=== PATIENT | male | born 2000 | race Caucasian/White ===

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

== ENCOUNTER 2020-01-10 20:37 | Emergency (ER) | payer MEDICAID ==
[~2020-01-10] VITALS: Ht 182.9 cm; Wt 75.0 kg
[~2020-01-10 20:37] MED LIST: DIPH25CA61 PO; FAMO-79 PO; HYDR-826 PO; LITH600C PO; MELA10TA PO; QUET200T PO
[2020-01-10] MEDS ORDERED: KETOROLAC 30 MG/1 ML IVPush ONE (21:30)
[2020-01-10] MEDS ORDERED: KETOROLAC 30 MG/1 ML ONE (21:43)
[2020-01-10 21:58] VITALS: BP 113/68
== END 2020-01-10 22:15 | disposition home or self-care (01) ==
LOC: ED 21:45
DX: R07.89 Other chest pain (principal)
CPT/HCPCS: 71045; 93005; 96374; 99283; J1885

== ENCOUNTER 2020-04-04 18:37 | Emergency (ER) | payer MEDICAID ==
[~2020-04-04] VITALS: Ht 180.3 cm; Wt 76.2 kg
--- NOTE | 2020-04-04 19:19 | NUR ---
PT PRESENTING TO ER FOR SHARP/STABBING RIGHT ABD PAIN, NO N/V/D, NO URINARY SYMPOTMS REPORTED. CONNECTED TO MONITORING, VSS. CALL LIGHT WITHIN REACH. UA COLLECTED AND SENT TO LAB. LABS COLLECTTED AND PT BEING TAKEN TO RAD NOW.
[2020-04-04 19:26] LABS: BASOPHILS # (AUTO) 0.03 x10^3/uL (0-0.3); BASOPHILS % (AUTO) 0 % (0-1); EOSINOPHILS # (AUTO) 0.09 x10^3/uL (0-0.8); EOSINOPHILS % (AUTO) 1 % (1-7); LYMPHOCYTES # (AUTO) 2.34 x10^3/uL (1-6.1); LYMPHOCYTES % (AUTO) 26 % (22-44); MD NO; MEAN CORPUSCULAR HEMOGLOBIN 28.9 pg (27.5-34.5); MEAN CORPUSCULAR HGB CONC 33.7 g/dL (33.2-36.2); MEAN CORPUSCULAR VOLUME 85.9 fL (81-97); MEAN PLATELET VOLUME 8.1 fL (7.4-10.4); MONOCYTES # (AUTO) 0.85 x10^3/uL (0-1.4); MONOCYTES % (AUTO) 10 % (2-9); NEUTROPHILS # (AUTO) 5.62 x10^3/uL (1.8-8.0); NEUTROPHILS % (AUTO) 63 % (42-75); PLATELET COUNT 248 x10^3/uL (130-400); RED BLOOD COUNT 5.51 x10^6/uL (4.38-5.82); RED CELL DISTRIBUTION WIDTH 12.5 % (9.4-14.8)
[2020-04-04 19:39] LABS: ALANINE AMINOTRANSFERASE 22 U/L (12-78); ALBUMIN 4.3 g/dL (3.4-5.0); ANION GAP 6 mmol/L (5-15); CALCIUM 8.8 mg/dL (8.5-10.1); CHLORIDE 104 mmol/L (98-107)
[2020-04-04 19:41] LABS: ALKALINE PHOSPHATASE 62 U/L (45-117); BILIRUBIN,TOTAL 0.5 mg/dL (0.2-1.0); CREATININE 1.04 mg/dL (0.7-1.3); TOTAL PROTEIN 7.5 g/dL (6.4-8.2)
--- NOTE | 2020-04-04 20:18 | NUR ---
ALL RESULTS BACK AT THIS TIME, CHART UP FOR RECHECK
[2020-04-04 20:19] VITALS: BP 108/73
[2020-04-04] MEDS ORDERED: ONDANSETRON ODT 4 MG PO ONE (20:30)
[2020-04-04] MEDS ORDERED: HYDROcodone/APAP 5/325 TABLET PO STA (20:30)
[2020-04-04] MEDS ORDERED: ONDANSETRON ODT 4 MG ONE (20:32)
[2020-04-04] MEDS ORDERED: HYDROcodone/APAP 5/325 TABLET ONE (20:33)
== END 2020-04-04 21:01 | disposition home or self-care (01) ==
LOC: ED 20:55
DX: K59.00 Constipation, unspecified (principal); R10.84 Generalized abdominal pain
CPT/HCPCS: 36415; 74021; 80053; 83690; 85025; 99284; Q0162

== ENCOUNTER 2020-08-06 18:54 | Emergency (ER) | payer MEDICAID ==
[~2020-08-06] VITALS: Ht 180.3 cm; Wt 71.9 kg
[2020-08-06 18:57] VITALS: BP 128/79
--- NOTE | 2020-08-06 19:33 | NUR ---
commander internal affairs: Pt to room from lobby at this time.
--- NOTE | 2020-08-06 19:43 | NUR ---
THIS IS A 20Y M THAT COMES IN TONIGHT FOR C/O L CP, PAIN DOES NOT RADIATE, DENIES N/V/D TODAY, NOT DIAPHORETIC. PT STS CALLED [facility] TO GET ADVICE ABOUT THIS CHEST PAIN AND WAS URGED TO GET "SOME BLOOD WORK AND CHEST XRAY" PT AMB TO ROOM STEADY GAIT CHEPE, POLITE YOUNG MAN CONNECTED TO MONITORING VSS, CHEPE.
[2020-08-06] MEDS ORDERED: IBUPROFEN 200 MG TABLET PO ONE (20:30)
--- NOTE | 2020-08-06 20:38 | NUR ---
PER DR LEIVA HOLD IBUPROFEN PT TOOK 600MG AT 1635
[2020-08-06] MEDS ORDERED: KETOROLAC 30 MG/1 ML IM ONE (21:00)
[2020-08-06] MEDS ORDERED: KETOROLAC 30 MG/1 ML ONE (21:07)
== END 2020-08-06 21:20 | disposition home or self-care (01) ==
LOC: ED 20:51
DX: R07.89 Other chest pain (principal); R19.7 Diarrhea, unspecified
CPT/HCPCS: 71045; 93005; 96372; 99283; J1885